=== PATIENT | male | born 1965 | race Caucasian/White ===

== ENCOUNTER 2025-03-04 06:17 | Emergency (ER) | payer MEDICARE, SELFPAY ==
[2025-03-04 06:22] VITALS: BP 186/111
--- NOTE | 2025-03-04 06:48 | ED.GENMED ---
History of Present Illness
General
Chief Complaint: Abdominal Pain
Time Seen by Provider: 03/04/25 06:28
History of Present Illness
History of Present Illness:
see MDM
Past History
Past History
ED Past Medical History: GERD, HTN and Other (Prostatitis)
ED Past Surgical History: Orthopedic
Social History
Tobacco: Smoker
Alcohol: Occasional
Living: with family
Employment: Employed
Phy Exam
Physical Exam
Physical Exam:
see MDM
Course
Orders/Labs/Results
Orders:
Orders
03/04/25 06:29
Ketorolac [Toradol] 30 mg IV NOW STA
CR Chest - 2 Views Urgent
Comment:
Reason For Exam: R pleuritic cp
03/04/25 06:30
Electrocardiogram (*1) Urgent
Reason for Study: Shortness of Breath
EKG- Treatment ONCE
03/04/25 06:58
Complete Blood Count/With Diff Urgent
D-Dimer Urgent
PTT Urgent
Prothrombin Time Urgent
Troponin I Urgent
03/04/25 07:50
Comprehensive Metabolic Panel Urgent
Lipase Urgent
03/04/25 07:51
CT Pe/abd/pel W Urgent
Reason For Exam: elevted d dimer, pleuritic cp
Abnormal Lab Results
03/04/25 03/04/25
06:58 07:50
MPV 11.0 H fL
(7.4-10.4)
D-Dimer 2.46 H ug/mlFEU
(0.00-0.50)
Glucose 100 H mg/dl
(70-99)
03/04/25 06:58
03/04/25 07:50
Vital Signs
Initial and Last Documented VS:
Initial Vital Signs
Temp Pulse Resp BP Pulse Ox
36.4 C 88 21 186/111 99
03/04/25 06:22 03/04/25 06:22 03/04/25 06:22 03/04/25 06:22 03/04/25 06:22
Last Documented Vital Signs
Temp Pulse Resp BP Pulse Ox
36.4 C 70 12 154/95 99
03/04/25 06:22 03/04/25 07:34 03/04/25 07:34 03/04/25 09:49 03/04/25 07:56
MDM/Problems Addressed
Differential Diagnosis Includes:
see MDM
MDM/Problems Addressed:
Note:
CHIEF COMPLAINT(S)
Progressive pain when breathing, worsening over the past week.
HISTORY OF PRESENT ILLNESS
This is a male 59 y/o M with history of hep C s/p treatment in remission, remote IVDA and more recent suspicious lesion liver concerning for HCC, h/o cirrhosis, here with R pleuritic pain x 1 week.
pt says he has pain with taking deep breaths but doesn't feel abdominal pain or tenderness, he has no MOREL/exertional cp.
pt has never had PE
in past, He was treated with ledipasvir-sofosbuvir for hepatitis C and was cured. Two years ago, the patient was diagnosed with liver cancer and is not a candidate for transplantation. and at that time he stopped pursuing treatment.
He also reports smoking and has h/o divertic, but says this pain doesn't feel anything like that.
denies fever, confusion, vomiting, diarrhea, stool car colored
PAST MEDICAL AND SURIGICAL HISTORY
The patient has a past medical history of diverticulitis and a history of hepatitis C, now cured. He also mentions diverticulitis leading to a severe episode almost perforating his colon two years ago but did not require surgery. He has a history of
knee surgery.
CHRONIC MEDICAL CONDITIONS SIGNIFICANTLY AFFECTING CARE
The patient�s medical history includes terminal liver cancer, diverticulitis, and previously hepatitis C infection.
SOCIAL DETERMINANTS AFFECTING HEALTH
The patient has a history of intravenous drug use at age 18, which led to acquiring hepatitis C. He currently smokes.
MEDICATIONS
The patient is on blood pressure medication, specifically lisinopril, but did not take it on the day of the visit.
REVIEW OF SYSTEMS
- Respiratory: Progressive pain with breathing over the past week.
- Gastrointestinal: Changes in stool consistency due to diverticulitis, history of hemorrhoids.
- Musculoskeletal: History of knee surgery.
PHYSICAL EXAM
GENERAL: Alert , in no apparent distress
EYE: pupils equal and reactive
NECK: Supple
ENT: o/p clr, mmm.
CARDIAC: Regular rate and rhythm .
LUNGS: Clear breath sounds bilaterally, no acute respiratory distress, no wheezes/rales/rhonchi
ABDOMEN: Soft, without focal tenderness, no r/g, no cvat, normal bowel sounds
Hepatomegaly without tenderness
NEUROLOGICAL: Alert and oriented, no focal neuro deficits
SKIN: Warm and dry, skin intact. Slightly jaundice abdomen
MUSCULOSKELETAL: No edema, well perfused. neg joanna's sign
PSYCH: Normal and appropriate interaction.
Nursing notes reviewed and vital signs reviewed. No significant tenderness upon examination.
PROBLEM LIST
Acute Problems:
- Severe pain exacerbated by deep breathing
Chronic Problems:
- Terminal liver cancer
- Diverticulitis
PLAN
The plan includes ordering a complete blood test and an ultrasound to further assess the cause of the pain and evaluate potential fluid accumulation or referred pain from the liver.
DIFFERENTIAL DIAGNOSIS
The Differential Diagnosis includes, in no particular order and is not limited to:
- Liver Metastasis
- Ascites
- Hepatomegaly
- Pleural Effusion
- Pneumonia
- Pulmonary Embolism
- Costochondritis
- Cholecystitis
- Peptic Ulcer Disease
- Gastritis
03/04/25 - 09:53
CT scan reviewed: Previous liver lesion hsas significnatly increased in size. No evidence of PE, pneumonia, infection, or gallstones. Liver enzymes and blood work remain stable, indicating no liver failure at present. Patient has a history of
cirrhosis from hepatitis and acknowledges terminal liver cancer. he has chosen not to pursue treatment or diagnostic testing and thus, patient expresses desire to focus on quality of life, spending time with family. Advised to consider follow-up
with a GI specialist for symptom management, acknowledging progression-related pain. Plan to provide a copy of scan report for patient records.
*Pulse Oximetry
SaO2: 99
Oxygen Mode of Delivery: Room air
Patient hypoxic: no (99)
*Critical Care Note
Total Time (30-74mins, 75-104mins- exclusive of procedures): Not Applicable
ED Attending Note
-
Portions of this chart may have been created with voice recognition software.� Occasional wrong word or��sound alike� substitutions may have occurred due to the inherent limitations of voice recognition software.
Discharge Plan
Departure
Patient Disposition: Home (Routine Discharge)
Date of Disposition: 03/04/25
Time of Disposition: 09:52
Patient with high blood pressure during this ER visit?: Yes
Condition: Fair
Covid-19: Not Applicable
Discharge Problem:
Liver mass
Instructions: Abdominal Pain, BLOOD PRESSURE
Prescriptions:
No Action
omeprazole 20 MG capsule,delayed release(DR/EC)
20 mg PO DAILY
aspirin [Aspir-Low] 81 MG tablet,delayed release (DR/EC)
162 mg PO DAILY
dextroamphetamine-amphetamine [Adderall] 30 mg Tablet
30 mg PO BID
lorazepam [Ativan] 0.5 mg Tablet
0.5 mg PO BID
lisinopril-hydrochlorothiazide 20-25 mg Tablet
1 tab PO DAILY
oxycodone 5 mg tablet
5 mg PO TID PRN (Reason: Pain) Qty: 14 0RF
Referrals:
Jean-Paul Molina DO [Family Provider, Family Practice] - Follow up in 2-3 days
Activity Restrictions/Additional Instructions:
Your abdominal pain may be from an increase in the mass in your liver. There is no signs of liver failure at this time. You do have signs of cirrhosis. You should consider following up with your family doctor or with palliative care to see what
kind of treatment they can offer you if you prefer. Otherwise make sure you avoid Tylenol
Your blood pressure was mildly elevated. Make sure you are taking your medications
Interventions
Interventions:
*Risk Screen - Suicide Last Done: 03/04/25 06:22
*General Assessment Last Done: 03/04/25 06:22
*Neglect/Abuse Screening Last Done: 03/04/25 06:22
*ED- Fall Risk Assessment Last Done: 03/04/25 06:22
*ED COVID-19 Vaccine History Last Done: 03/04/25 06:56
*ED Influenza Vaccine History Last Done: 03/04/25 06:22
*Nursing Disposition Last Done: 03/04/25 10:05
JN-Xzekdl-Bhwvlfoior Assessment Last Done: 03/04/25 07:07
Discharge Date and Time
Discharge Date/Time: 03/04/25 10:09
Print Language: KOREAN
[2025-03-04] MEDS: TORADOL 30 MG IV (06:59)
[2025-03-04 07:14] LABS: Hematocrit 47.8 % (39.0-52.0); Hemoglobin 15.8 g/dL (13.0-18.0); Mean Corp Hgb Conc. 33.1 g/dL (33.0-37.0); Mean Corpuscular Volume 81.6 fL (80.0-94.0); Nucleated Red Blood Cells % 0 % (-); Platelet Count 186 10^3/uL (130-400); Red Cell Dist. Width 13.1 % (11.5-14.5)
[2025-03-04 07:22] LABS: INR 0.91; PT 12.7 Sec (11.4-14.6)
[2025-03-04 07:23] LABS: APTT 27.3 Sec (23.4-35.0)
[2025-03-04 07:25] LABS: D-Dimer 2.46 ug/mlFEU (0.00-0.50)
[2025-03-04 07:39] LABS: Troponin I < 0.012 ng/ml
[2025-03-04 08:20] LABS: ALT (SGPT) 25 U/L (0-50); AST (SGOT) 54 U/L (17-59); Albumin 4.9 g/dl (3.5-5.0); Alkaline Phosphatase 104 U/L (38-126); Blood Urea Nitrogen 17 mg/dl (9-20); Calcium 10.0 mg/dl (8.4-10.2); Carbon Dioxide 28 mmol/L (22-30); Chloride 102 mmol/L (98-107); Estimated Creatinine Clearance 117 ml/min; Glucose 100 mg/dl (70-99); Lipase 106 U/L (23-300); Potassium 4.3 mmol/L (3.5-5.1); Sodium 137 mmol/L (135-145); Total Protein 8.0 g/dl (6.3-8.2); eGFR > 60.00
[2025-03-04 09:49] VITALS: BP 154/95
== END 2025-03-04 10:09 | disposition home or self-care (01) ==
LOC: EMR 06:17
PROVIDERS: Physician Assistant; EMERGENCY PHYSICIAN Student in an Organized Health Care Education/Training Program; FAMILY PHYSICIAN Family Medicine
DX: R16.0 Hepatomegaly, not elsewhere classified (principal); C22.8 Malignant neoplasm of liver, primary, unspecified as to type; K74.60 Unspecified cirrhosis of liver; I10 Essential (primary) hypertension; F17.200 Nicotine dependence, unspecified, uncomplicated; Z86.19 Personal history of other infectious and parasitic diseases
CPT/HCPCS: 99285; 96374; 71046; 71275; 74177; 80053; 83690; 84484; 85025; 85379; 85610; 85730; 93005; Q9967